=== PATIENT | male | born 1990 | race African-American/Black ===

== ENCOUNTER 2019-03-16 15:53 | Emergency (ER) | payer SELFPAY ==
[~2019-03-16] VITALS: Ht 170.2 cm; Wt 55.5 kg
[2019-03-16 16:10] VITALS: Ht 170.2 cm; Wt 55.5 kg
[2019-03-16 16:59] LABS: BASOPHIL % 1.2 % (0-2); PLATELET COUNT 342 x10^3mcL (130-400); RED CELL DISTRIBUTION WIDTH 13.5 % (11.5-14.5)
[2019-03-16 18:04] LABS: CHLORIDE SERUM 102 mmol/L (98-107); CREATININE SERUM 1.3 mg/dL (0.7-1.3); GFR1 > 60 mL/min; GLUCOSE SERUM 86 mg/dL (74-106); POTASSIUM SERUM 3.7 mmol/L (3.5-5.1); SODIUM SERUM 139 mmol/L (136-145)
[2019-03-16 18:09] LABS: ALBUMIN 3.7 g/dL (3.4-5.0); ALKALINE PHOSPHATASE 82 U/L (46-116); ALT/SGPT 30 U/L (16-63); BILIRUBIN TOTAL 0.91 mg/dL (0.20-1.00); CHOLESTEROL 159 mg/dL (<200); PHOSPHOROUS 3.3 mg/dL (2.5-4.9); TOTAL PROTEIN, SERUM 8.2 g/dL (6.4-8.2); URIC ACID 5.4 mg/dL (3.5-7.2)
[2019-03-16 18:10] LABS: HDL CHOLESTEROL 92 mg/dL (40-60)
[2019-03-16 19:05] VITALS: BP 99/57
[2019-03-16 19:42] LABS: AST/SGOT 26 U/L (15-37); CALCIUM 9.5 mg/dL (8.5-10.1)
== END 2019-03-16 19:05 | disposition home or self-care (01) ==
LOC: ED 15:53
PROVIDERS: Emergency Medicine
DX: R07.89 Other chest pain (principal); F17.210 Nicotine dependence, cigarettes, uncomplicated; J45.909 Unspecified asthma, uncomplicated; R06.02 Shortness of breath
CPT/HCPCS: 36415; 99406; J1885; Q0092